=== PATIENT | female | born 1985 | race Two or more races ===

== ENCOUNTER 2017-03-22 21:44 | Inpatient (IN) | payer SELFPAY ==
[~2017-03-22] VITALS: Ht 162.6 cm; Wt 88.8 kg
[2017-03-22 22:03] VITALS: Ht 162.6 cm; Wt 88.8 kg
[2017-03-22 22:04] VITALS: BP 117/70; PULSE 107; RESP 18
[2017-03-22] MEDS ORDERED: PREN1TAB17 PO (22:06)
[2017-03-23] MEDS ORDERED: OXYTOCIN 30 UNITS/LR 500 ML IV SCH
[2017-03-23] MEDS ORDERED: BUTORPHANOL 2 MG INJ IV PRN
[2017-03-23] MEDS ORDERED: AMPICILLIN 2 GM/NS (PMX) 100 ML IV ONE
[2017-03-23] MEDS ORDERED: LIDOCAINE 1% (MPF) 30 ML INJ INJ PRN
--- NOTE | 2017-03-23 00:49 | HP ---
Date/Time of Note Date/Time of Note DATE: 03/23/17 TIME: 00:44 OB - History Hx of Present Free Text/Dictation 31 Year-old with SIUP at 38 6/7 weeks presents with a chief complaint of uterine contractions. She has been receiving her care with Dr. Chambers. She states good movement. She denies nausea, vomiting, shortness of breath, chest pain, headache, visual changes, vaginal bleeding or LOF. Chief Complaint: ucs Estimated Due Date: Apr 26, 2017 : 2 Para: 0 Spontaneous : 1 Care: Good Care Ultrasounds: Normal mid trimester US Obstetrical Complications: None Medical Complications: None Past Family/Social History * Past Medical, Surgical, Family and Obstetric Histories reviewed from chart. Blood Type: O+ Rubella: immune RPR/VDRL: Negative GBS Status: Unknown HBsAG: Negative OB Admission Exam Vital Signs Vital Signs Vital Signs Date Time Temp Pulse Resp B/P Pulse Ox O2 Delivery O2 Flow Rate FiO2 03/22/17 22:04 98.0 107 18 117/70 Room Air Physical Exam HEENT: WNL Heart: Rhythm Normal Lungs: Clear Abdomen: WNL Extremities: Normal Cervical Dilatation: 2cm Effacement: 75% Station: -2 Membranes: Intact Heart Rate: 140's Accelerations: Accelerations Present Varibility: Moderate Contractions on Admission: < 5 Minutes Apart Intensity: Moderate OB Assessment/Plan Other plan: 31 Year-old with SIUP at 38 6/7 weeks in labor. - FHR: No sign of metabolic acidosis- Category I - Continious EFM, toco - CBC, blood type and screen - Analgesia options with R/B/A discussed in detail with patient - Epidural per patient request - Please see the orders - O+/Rubella: Immune/GBS: unknown, PCN for GBS prophylaxis Admission, procedures, expectations, risks and possible complications have been discussed in detail with the patient. Risk of vaginal delivery including but not limited to bleeding, infection, cervical laceration, placental retention, injury to fetus, blood transfusion, blood transfusion related infection, risk of anesthesia, adhesion, cervical laceration, episiotomy/laceration, possible delivery with risk of bleeding, infection, injury to other organs ( bowel, bladder, ureter, vessels, nerves), injury to fetus, blood transfusion, blood transfusion related infection, risk of anesthesia, scar and hernia formation, needs for future , removal of uterus or any other indicated surgery discussed with the patient. She expressed understanding and repeats the risks. All of her questions were answered; all appropriate consents will be signed. PHYSICIAN'S VERIFICATION OF INFORMED CONSENT: The patient was counseled regarding the procedure, its indications, risks, potential complications and alternatives and any questions were answered. Consent was obtained. PLANNED PROCEDURE/TREATMENT: Vaginal delivery with possible vacuum/forceps delivery episiotomy, repair of laceration possible delivery PHYSICIAN'S VERIFICATION OF INFORMED CONSENT FOR BLOOD TRANSFUSION: There is a reasonable possibility that blood transfusion will be necessary as a result of the patient's procedure. I have discussed the following with the patient/patient's legal advertising representative: An explanation of the benefits and risks of the transfusion of blood or blood products and the possible alternatives. Al questions have been answered to the patient's/patients legal representatives satisfaction. INFORMED CONSENT: The patient has been informed of: - The nature of the proposed care, treatment, services, medic- Potential benefits, risks or side effects, including potential problems related to recuperation. - The likelihood of achieving care treatment and service goals. - Reasonable alternatives to the proposed care, treatment and service. - The relevant risks, benefits and side effects related to alternatives, including the possible results of not receiving care, treatment and services. - When indicated, any limitations on the confidentiality of information learned from or about the patient. - If appropriate, the risks, benefits and alternatives of the drugs to be used for sedation/analgesia including moderate sedation. - If appropriate, patient has been provided information on the risks, benefits and alternatives to the transfusion of blood and/or blood products. PREM LOREDO Mar 23, 2017 00:49
[2017-03-23 00:51] LABS: BASOPHILS % 0.2 % (0.0-2.0); EOSINOPHILS % 0.2 % (0.0-7.0); HEMATOCRIT 37.5 % (37.0-47.0); LYMPHOCYTES # 0.8 10^3/ul (0.8-2.9); LYMPHOCYTES % 9.5 % (15.0-51.0); MEAN CORPUSCULAR HEMOGLOBIN 25.6 pg (29.0-33.0); MEAN PLATELET VOLUME 10.8 fl (7.4-10.4); MONOCYTE # 0.5 10^3/ul (0.3-0.9); MONOCYTES % 5.8 % (0.0-11.0); NEUTROPHIL # 7.3 10^3/ul (1.6-7.5); NEUTROPHILS % 83.5 % (39.0-77.0); PLATELET COUNT 185 10^3/UL (140-415); RED BLOOD COUNT 4.69 10^6/ul (4.20-5.40); RED CELL DISTRIBUTION WIDTH 15.2 % (11.5-14.5); WHITE BLOOD COUNT 8.8 10^3/ul (4.8-10.8)
[2017-03-23] MEDS ORDERED: LACTATED RINGER'S 1,000 ML IV PRN (01:00)
[2017-03-23 01:10] LABS: INR 0.95; PROTIME 12.7 Sec (12.2-14.2)
[2017-03-23 01:11] LABS: PARTIAL THROMBOPLASTIN TIME 24.5 Sec (25.0-35.0)
[2017-03-23] MEDS ORDERED: ONDANSETRON 4 MG INJ ONE (01:15)
[2017-03-23] MEDS: LACTATED RINGER'S 1,000 ML IV SCH ×3 (01:18→15:18)
[2017-03-23] MEDS ORDERED: ONDANSETRON 4 MG INJ IV PRN (01:30)
[2017-03-23] MEDS ORDERED: FENTAnyl 2MCG/ML-ROPIV 0.2% 100 ML ONE (01:34)
[2017-03-23] MEDS ORDERED: FENTAnyl 2MCG/ML-ROPIV 0.2% 100 ML BAG EPI SCH (02:00)
[2017-03-23] MEDS ORDERED: NALOXONE (0.4 MG/ML) INJ IV PRN (02:00)
[2017-03-23 05:53] LABS: BARBITURATES NEGATIVE (NEGATIVE); BENZODIAZEPINES NEGATIVE (NEGATIVE); COCAINE NEGATIVE (NEGATIVE); OPIATES NEGATIVE (NEGATIVE)
[2017-03-23] MEDS: AMPICILLIN 1 GM/NS (PMX) 50 ML IV SCH ×4 (06:01→16:00)
[2017-03-23 07:41] LABS: CANNABINOIDS NEGATIVE (NEGATIVE)
[2017-03-23] MEDS: DEXTROSE 5%-LR 1,000 ML IV SCH ×2 (09:40→10:42)
--- NOTE | 2017-03-23 15:10 | LDN ---
Date/Time of Note Date/Time of Note DATE: 03/23/17 TIME: 15:09 Delivery Summary term preg, NSD Placenta Delivered: Spontaneously Meconium: none Episiotomy: Yes Anesthesia type: Epidural Estimated blood loss: 300 Sponge & Needle done & correct: Yes All needle counts correct: Yes Any foreign bodies felt in the: No Problems: RUBY AUGUSTIN MD Mar 23, 2017 15:10
--- NOTE | 2017-03-23 15:12 | DS ---
Date/Time of Note Date/Time of Note DATE: 03/23/17 TIME: 15:11 Discharge Summary Admission/Discharge Info Admit Date/Time Mar 22, 2017 at 23:40 Discharge Date/Time Discharge Diagnosis term preg Patient Condition: Stable Hospital Course unremarkable Home Meds Reported Medications Vit-Iron Fumarate-FA ( Tablet) 1 Each Tablet, 1 TAB PO DAILY, TAB 03/22/17 Primary Care Provider Not On Staff Doctor Pending Labs Laboratory Tests Test 03/23/17 00:20 03/23/17 03:45 White Blood Count 8.810^3/ul (4.8-10.8) Red Blood Count 4.6910^6/ul (4.20-5.40) Hemoglobin 12.0g/dl (12.0-16.0) Hematocrit 37.5% (37.0-47.0) Mean Corpuscular Volume 80.0fl (82.0-101.0) Mean Corpuscular Hemoglobin 25.6pg (29.0-33.0) Mean Corpuscular Hemoglobin Concent 32.0g/dl (32.0-37.0) Red Cell Distribution Width 15.2% (11.5-14.5) Platelet Count 40496^3/UL (140-415) Mean Platelet Volume 10.8fl (7.4-10.4) Neutrophils % 83.5% (39.0-77.0) Lymphocytes % 9.5% (15.0-51.0) Monocytes % 5.8% (0.0-11.0) Eosinophils % 0.2% (0.0-7.0) Basophils % 0.2% (0.0-2.0) Nucleated Red Blood Cells % 0.0/100WBC (0.0-0.0) Neutrophils # 7.310^3/ul (1.6-7.5) Lymphocytes # 0.810^3/ul (0.8-2.9) Monocytes # 0.510^3/ul (0.3-0.9) Eosinophils # 0.010^3/ul (0.0-0.5) Basophils # 0.010^3/ul (0.0-0.1) Nucleated Red Blood Cells # 0.010^3/ul (0.0-0.0) Prothrombin Time 12.7Sec (12.2-14.2) Prothrombin Time Ratio 1.0 INR International Normalized Ratio 0.95 Activated Partial Thromboplast Time 24.5Sec (25.0-35.0) Hepatitis B Surface Antigen NEGATIVE (NEGATIVE) Urine Opiates Screen NEGATIVE (NEGATIVE) Urine Barbiturates NEGATIVE (NEGATIVE) Urine Amphetamines Screen NEGATIVE (NEGATIVE) Urine Benzodiazepines Screen NEGATIVE (NEGATIVE) Urine Cocaine Screen NEGATIVE (NEGATIVE) Urine Cannabinoids NEGATIVE (NEGATIVE) RUBY AUGUSTIN MD Mar 23, 2017 15:11
[2017-03-23] MEDS: OXYTOCIN 30 UNITS/LR 500 ML IV SCH ×4 (15:17→23:50)
[2017-03-23 17:10] VITALS: BP 117/76; PULSE 85; RESP 18
[2017-03-23] MEDS ORDERED: LACTATED RINGER'S 1,000 ML IV* SCH (17:34)
[2017-03-23] MEDS: IBUPROFEN 800 MG TAB PO SCH ×2 (17:56→23:40)
[2017-03-23] MEDS ORDERED: WITCH HAZEL/GLYCERIN PAD PR PRN (18:00)
[2017-03-23] MEDS ORDERED: CARBOPROST 250 MCG INJ IM PRN ×2 (18:00)
[2017-03-23] MEDS ORDERED: MISOPROSTOL 200 MCG TAB PR PRN ×2 (18:00)
[2017-03-23] MEDS ORDERED: DIPHENHYDRAMINE 25 MG CAP PO PRN (18:00)
[2017-03-23] MEDS ORDERED: LANOLIN 7 GM TUBE TOP PRN (18:00)
[2017-03-23] MEDS ORDERED: OXYTOCIN 30 UNITS/LR 500 ML IV PRN ×2 (18:00)
[2017-03-23] MEDS ORDERED: ZOLPIDEM 5 MG TAB PO PRN (18:00)
[2017-03-23] MEDS ORDERED: ACETAMINOPHEN 325 MG TAB PO PRN (18:00)
[2017-03-23] MEDS ORDERED: MAGNESIUM HYDROXIDE 30ML CUP PO PRN (18:00)
[2017-03-23] MEDS ORDERED: SENNA/DOCUSATE NA (8.6MG/50MG) TAB PO PRN (18:00)
[2017-03-23] MEDS ORDERED: BENZOCAINE 20% 56 ML SPRAY TOP PRN (18:00)
[2017-03-23] MEDS ORDERED: METHYLERGONOVINE 0.2 MG INJ IM PRN ×2 (18:00)
[2017-03-23] MEDS ORDERED: HYDROCODONE/APAP (5/325) TAB PO PRN (18:00)
[2017-03-23 20:02] VITALS: BP 96/50; PULSE 74; RESP 18
[2017-03-23] MEDS ORDERED: INFLUENZA VIRUS VACCINE 0.5 ML (DISPENSING) IM* ONE (21:00)
[2017-03-24] VITALS: BP 105/55; PULSE 69; RESP 18
[2017-03-24 04:00] VITALS: BP 105/59; PULSE 70; RESP 18
[2017-03-24] MEDS: IBUPROFEN 800 MG TAB PO SCH ×2 (05:51→12:00)
[2017-03-24 08:00] VITALS: BP 108/63; PULSE 86; RESP 20
[2017-03-24 10:08] LABS: BASOPHILS % 0.1 % (0.0-2.0); EOSINOPHILS # 0.1 10^3/ul (0.0-0.5); EOSINOPHILS % 1.2 % (0.0-7.0); HEMATOCRIT 34.5 % (37.0-47.0); HEMOGLOBIN 11.3 g/dl (12.0-16.0); LYMPHOCYTES # 1.4 10^3/ul (0.8-2.9); MEAN CORPUSCULAR HEMOGLOBIN 26.5 pg (29.0-33.0); MEAN CORPUSCULAR HGB CONC 32.8 g/dl (32.0-37.0); MEAN CORPUSCULAR VOLUME 80.8 fl (82.0-101.0); MONOCYTE # 1.2 10^3/ul (0.3-0.9); MONOCYTES % 10.8 % (0.0-11.0); NEUTROPHIL # 8.5 10^3/ul (1.6-7.5); NEUTROPHILS % 75.4 % (39.0-77.0); PLATELET COUNT 171 10^3/UL (140-415); RED BLOOD COUNT 4.27 10^6/ul (4.20-5.40); RED CELL DISTRIBUTION WIDTH 15.1 % (11.5-14.5); WHITE BLOOD COUNT 11.3 10^3/ul (4.8-10.8)
--- NOTE | 2017-03-24 10:09 | PN ---
Date/Time of Note Date/Time of Note DATE: 03/24/17 TIME: 09:58 OB Subjective Subjective Subjective Decreased bleeding. Denies any dizziness, lightheadadness.Has been breast feeding.Complains of constipation. Has been ambulated, urinated. feels breast soreness. OB Objective Objective Objective GA: A&O, NAD Abdomen: soft, non tender. No fundal tenderness. No rebounnd tenderness Breasts, No evidence of fissure no evidence of mastitis. Extremities: No calf tenderness, no cord palpable.Negative Mario sign Hematology - 72 Hrs Test 03/23/17 00:20 03/24/17 09:26 White Blood Count 8.810^3/ul (4.8-10.8) Pending Red Blood Count 4.6910^6/ul (4.20-5.40) Pending Hemoglobin 12.0g/dl (12.0-16.0) Pending Hematocrit 37.5% (37.0-47.0) Pending Mean Corpuscular Volume 80.0fl (82.0-101.0) L Pending Mean Corpuscular Hemoglobin 25.6pg (29.0-33.0) L Pending Mean Corpuscular Hemoglobin Concent 32.0g/dl (32.0-37.0) Pending Red Cell Distribution Width 15.2% (11.5-14.5) H Pending Platelet Count 60930^3/UL (140-415) Pending Mean Platelet Volume 10.8fl (7.4-10.4) H Pending Neutrophils % 83.5% (39.0-77.0) H Lymphocytes % 9.5% (15.0-51.0) L Monocytes % 5.8% (0.0-11.0) Eosinophils % 0.2% (0.0-7.0) Basophils % 0.2% (0.0-2.0) Nucleated Red Blood Cells % 0.0/100WBC (0.0-0.0) Neutrophils # 7.310^3/ul (1.6-7.5) Lymphocytes # 0.810^3/ul (0.8-2.9) Monocytes # 0.510^3/ul (0.3-0.9) Eosinophils # 0.010^3/ul (0.0-0.5) Basophils # 0.010^3/ul (0.0-0.1) Nucleated Red Blood Cells # 0.010^3/ul (0.0-0.0) OB Assessment/Plan Other Assessment: s/p PPD #1 Desires to go home today May be discharged after 24 hours post delivery, this afternoon follow up at 6 weeks post with her ob office STUART NIEVES MD Mar 24, 2017 10:09
[2017-03-24] MEDS ORDERED: DIPHTH/TET/ACEL PERTUSS (ADULT) 0.5 ML VIAL IM* ONE (15:30)
[2017-03-25] MEDS ORDERED: VARICELLA VACCINE LIVE/PF 1,350 UNIT/0.5 ML ML SC* ONE (09:00)
[2017-03-25] MEDS ORDERED: MEASLES,MUMPS,RUBELLA VACCINE INJ SC* ONE (09:00)
[2017-03-25] MEDS ORDERED: DIPHTH/TET/ACEL PERTUSS (ADULT) 0.5 ML VIAL IM* ONE (09:00)
== END 2017-03-24 15:00 | disposition home or self-care (01) | DRG 775 ==
LOC: OBT 21:44 → L-D 21:46 → OBT 23:40 → L-D 23:40 → PP1 03-23 17:00
PROVIDERS: ADMIT Obstetrics & Gynecology; ATTEND Obstetrics & Gynecology
PROC: 10E0XZZ Delivery of Products of Conception, External Approach (ICD-10-PCS; principal; 2017-03-23)
DX: O80 Encounter for full-term uncomplicated delivery (principal); Z37.0 Single live birth; Z3A.38 38 weeks gestation of pregnancy
CPT/HCPCS: 62319; 80307; 85025; 85610; 85730; 86592; 86900; 86901; 87340; 90686; 90715; 99464; G0463; J0290; J2405; J2590; J3010; J7120; J7121